=== PATIENT | male | born 2000 | race Two or more races ===

== ENCOUNTER 2024-07-29 04:14 | Emergency (ER) | payer SELFPAY ==
[2024-07-29 04:22] VITALS: BP 142/92; PULSE 91; RESP 19; TEMP 36.5; O2SAT 100; BMI 47.7
--- NOTE | 2024-07-29 04:26 | EDRME_ITS ---
Rapid Medical Screening Exam [facility] Arrival date/time: 07/29/24 04:14 24M with no significant PMH present so to ED with several days of N/V, epigastric pain/cramping, and non-bloody diarrhea. Chief Complaint: Abdominal Pain Vital signs: Vital Signs Temperature 97.7 F 07/29/24 04:22 Pulse Rate 91 07/29/24 04:22 Respiratory Rate 19 07/29/24 04:22 Blood Pressure 142/92 H 07/29/24 04:22 Pulse Oximetry (%) 100 07/29/24 04:22 Oxygen Delivery Method Room Air 07/29/24 04:22
[2024-07-29] MEDS: ONDANSETRON ODT 4 MG TABRAP 8 MG PO (04:31)
[2024-07-29] MEDS: MG HYD/AL HYD/SIME (Maalox Reg) SUSP 30 ML UDC PO (04:49)
[2024-07-29 05:12] LABS: Basophils # (Auto) 0.1 Thou/mm3 (0.0-0.2); Basophils % (Auto) 0 % (0-2.5); Eosinophils # (Auto) 0.1 Thou/mm3 (0.0-0.5); Eosinophils % (Auto) 1 % (0-10); Hematocrit 44.5 % (41.0-53.0); Immature Granulocytes % (Auto) 0 % (0-0); Immature Granulocytes Auto 0.03 Thou/mm3 (0.00-0.00); Lymphocytes # (Auto) 2.2 Thou/mm3 (1.0-4.8); Lymphocytes % (Auto) 18 % (10-50); Mean Corpuscular HGB Conc 33.7 g/dl (31.0-37.0); Mean Corpuscular Hemoglobin 30.6 pg (25.0-35.0); Mean Corpuscular Volume 91 fL (80-100); Monocytes # (Auto) 0.8 Thou/mm3 (0.0-0.8); Monocytes % (Auto) 7 % (0-12); Neutrophils % (Auto) 74 % (37-80); Nucleated Red Blood Cell % 0 /100 WBC (0); Platelet Count 181 Thou/mm3 (140-440); RDW Standard Deviation 39.6 fL (35.1-43.9); White Blood Count 12.2 Thou/mm3 (3.8-10.6)
[2024-07-29 05:42] LABS: Collection Type, Urine Clean Catch
[2024-07-29 06:02] LABS: Bilirubin,Urine Negative (Negative); Blood,Urine Negative (Negative); Clarity,Urine Clear (Clear/Hazy); Color,Urine Yellow (Lt Yel-Yel); Glucose, Urine Negative (Negative); Ketones,Urine Negative (Negative); Leukocyte Esterase,Urine Negative (Negative); Nitrite,Urine Negative (Negative); PH,Urine 7.5 (5.0-7.0); Protein,Urine Trace (Neg - Trace); RBC,Urine 1 /hpf (0-3); Specific Gravity,Urine 1.028 (1.001-1.035); Squamous Epithelial Cell,Urine < 1 /hpf (0-5); Urobilinogen,Urine Negative mg/dL (0.0-1.0); WBC,Urine 1 /hpf (0-5)
[2024-07-29 06:48] LABS: Alanine Aminotransferase 39 U/L (10-49); Albumin, Serum 4.6 gm/dL (3.5-5.0); Albumin/Globulin Ratio 1.6 (1.2-2.2); Alcohol, Blood Medical < 3.0 mg/dL (0-10.0); Alkaline Phosphatase 69 U/L (46-116); Anion Gap 8 (7-16); Aspartate Amino Transferase 26 U/L (0-34); BUN/Creatinine Ratio 14 Ratio (12-20); Bilirubin,Total 0.6 mg/dL (0.3-1.2); Blood Urea Nitrogen 13 mg/dL (9-23); Calcium 10.4 mg/dL (8.3-10.6); Calcium (Corrected) 10.4 mg/dL (8.5-10.1); Carbon Dioxide 24.7 mMol/L (20.0-31.0); Chloride 104 mMol/L (98-107); Creatinine (Component) 0.9 mg/dL (0.6-1.3); Estimated Creatinine Clearance 190.3 mL/min (>60); Globulin 2.9 gm/dL (2.3-3.5); Glucose 107 mg/dL (74-106); Lipase 35 U/L (12-53); Osmolality,Calculated 273 (275-295); Potassium 4.6 mMol/L (3.4-5.1); Sodium 137 mMol/L (136-145); Total Protein 7.5 gm/dL (5.7-8.2); eGFR > 60 See Note
[2024-07-29 07:08] VITALS: BP 143/85; PULSE 73; RESP 18; TEMP 36.9; O2SAT 97
[2024-07-29 07:38] LABS: Amphetamine/Methamp Scrn,U Negative (Negative); Barbiturate Screen,Urine Negative (Negative); Benzodiazepines Screen,Urine Negative (Negative); Benzoylecgonine Screen, Ur Negative (Negative); Opiate Screen,Urine Negative (Negative); THC Screen,Urine Negative (Negative)
--- NOTE | 2024-07-29 07:38 | EDNOTE_ITS ---
ED Abdominal Pain RME/HPI General Chief Complaint: Abdominal Pain Stated complaint: EPIGASTRIC PAIN Time seen by provider: 07/29/24 05:13 Arrival date/time: 07/29/24 04:14 RME / HPI RME / HPI narrative: 07/29/24 04:14 24M with no significant PMH present so to ED with several days of N/V, epigastric pain/cramping, and non-bloody diarrhea. DR. ALAN MAIN ED EVALUATION: 24 year old male with no stated medical history presents to the ED for evaluation of waxing and waning epigastric abdominal pain beginning 2 days ago. Described as cramping aching in sensation. Accompanied by nausea, vomiting x2 and diarrhea x2 since onset. Denies fevers, chills, sore throat, chest pain, cough, shortness of breath, or urinary symptoms. No history of similar pain. Related Data Allergies Allergy/AdvReac Type Severity Reaction Status Date / Time NKA* Allergy Uncoded 03/07/10 23:31 Review of Systems Review of Systems Narrative Review of Systems: Constitutional: DENIES; Fevers Eyes: DENIES; Loss of vision Head/Ear/Nose: DENIES; Loss of hearing Throat: DENIES; Dysphagia Cardiovascular: DENIES; Chest pain, dyspnea or syncope Respiratory: DENIES; Shortness of breath Gastrointestinal: SEE HPI +abd pain, n/v/d. DENIES; Rectal bleeding or melena. Genitourinary: DENIES; Dysuria (painful or difficult urination) Musculoskeletal: DENIES; Arthralgia (pain in a joint),; Skin: DENIES; Rash Neurological: DENIES; Loss of function or movement Psychiatric: DENIES; recent major life stressor, emotional problem, illicit drug use or abuse Endocrinology: DENIES; Weight change Hematologic/Lymphatic: DENIES; Abnormal bruising Allergic/Immunologic: DENIES; Urticaria (hives) Past Medical History Past Medical History CARDIAC: Negative Congestive Heart Failure RESPIRATORY: Negative Chronic Obstructive Pulmonary Disease (COPD) GENITOURINARY: Negative Renal Disease ENDOCRINE: Negative Diabetes Mellitus Type 1 or Diabetes Mellitus Type 2 Social History SMOKING STATUS: Current some day smoker ED Exam Narrative Physical exam: Physical Exam: General: The vital signs were reviewed. The patient is non-toxic, in no apparent distress and appears healthy with a patent airway, no respiratory distress and has no apparent circulatory problems. Head & Scalp: Normocephalic, atraumatic. Face: Appears normal and is without lesions, deformity. Ears: Left external pinna appears normal. Right external pinna appears normal. Eyes: The sclera is anicteric. No obvious photophobia. The Left and Right Orbit/Lid/Conjunctiva appears normal without swelling, discoloration or injection. Nose: The nose is without deformity, discharge or tenderness; Throat: Appears normal. The mucous membranes are pink and moist without exudates, redness or mass seen. The tongue appears normal. Neck: The neck is supple and no apparent mass or adenopathy. Chest: The chest wall is normal in size and symmetry and has no chest wall tenderness or crepitus. The patient displays normal ventilator effort without retractions, accessory muscle use and has adequate air movement bilaterally with no wheezes and no rales. Cardiovascular: Regular rate and rhythm; No murmurs, rubs, or gallops; Gastrointestinal: The abdomen appears normal. No obvious hernias or mass. The abdomen is soft and benign, non-distended, with no pain, no guarding and no rebound tenderness. Bowel sounds are present and normal sounding. No CVA tenderness. Genitourinary: Back/Spine: Extremities/Musculoskeletal/lymphatic: The bilateral upper and lower extremities are warm. There is no evidence of arterial insufficiency. There is no evidence of venous insufficiency/edema. The patient spontaneously moves bilateral upper and lower extremities with no pain and no limitation of movement. There is no apparent, injury or trauma. Skin: The skin is warm, dry and intact. No rashes. No petechia. No purpura. No abnormal bruising. The color is appropriate with no cyanosis. Mental status/Psychiatric: Mental status is appropriate for age. The patient has no apparent delusions, visual hallucinations, no apparent audible hallucinations. The patient has no apparent suicidal thoughts/ideation and no apparent homicidal thoughts/ideation. Neurological: The patient is awake, alert, interactive, cordial, cooperative and is oriented to name and situation. The patient follows commands and answers historical question with no imp airment. There is no visual disturbance apparent. The pupils are equal and reactive bilaterally with normal eye movements and no diplopia The bilateral upper and lower extremities have normal strength, normal range of motion and normal functioning. The gait, station and balance appear to be baseline with no acute change Course Quality Measures none Orders Category Date Time Status Alcohol, Blood Medical Stat Lab 07/29/24 04:34 Completed CBC Stat Lab 07/29/24 04:34 Completed CMP [Comprehensive Metabolic Panel] Stat Lab 07/29/24 04:34 Completed Drug Screen,Urine Stat Lab 07/29/24 05:34 Completed Lipase Stat Lab 07/29/24 04:34 Completed UA [Urinalysis] Stat Lab 07/29/24 05:34 Completed Ondansetron Odt [Zofran Odt] Med 07/29/24 07:48 Discontinued 4 mg PO X1 ONE Ondansetron Odt [Zofran Odt] Med 07/29/24 04:24 Discontinued 8 mg PO X1 ONE mg Hyd/Al Hyd/Kamron Susp [Maalox Susp] Med 07/29/24 04:25 Discontinued 30 ml PO X1 ONE Vital Signs Vital signs: Vital Signs Temperature 97.7 F 07/29/24 04:22 Pulse Rate 91 07/29/24 04:22 Respiratory Rate 19 07/29/24 04:22 Blood Pressure 142/92 H 07/29/24 04:22 Pulse Oximetry (%) 100 07/29/24 04:22 Oxygen Delivery Method Room Air 07/29/24 04:22 Pulse ox is 100% on room air which is adequate. Abdominal Pain MDM MDM Narrative MDM Narrative:: Lakisha Warren am scribing for and in the presence of Dr. Alan. Patient presents with nausea vomiting diarrhea 2 episodes of each does not appear to be clinically dehydrated and some intermittent epigastric symptoms associated with the diarrhea. Patient does not appear to be dehydrated sick in any way and no labs were needed. We gave him oral fluid trial for a good hour and a half he had no vomiting or diarrhea and was comfortable smiling and ready to go home unfortunately had high ER volumes at that time and had a delay in his discharge. Most likely is a viral gastroenteritis since was seen lots of flu and viral symptoms at this time he was advised return if getting worse in any way. Patient data External records reviewed:: None (No other visits for review ) Clinical information provided by:: patient Social determinants that could affect healthcare access:: none Patient has the following chronic illnesses:: None How is presenting disease/condition affected by chronic disease/condition?: no chronic disease Evaluation data The following diagnostics were reviewed and interpreted by me:: lab results Lab and/or radiology exams considered but not ordered:: None Interpretation Summary: As noted above Medications / Prescriptions Medications or Prescriptions considered but not ordered:: None Medication administrations:: Medication Administration History Discontinued Medications Al Hydrox/Mg Hydrox/Simethicone (Mg Hyd/Al Hyd/Kamron (Maalox Reg) Susp 30 Ml Udc) 30 ml PO X1 ONE Stop: 07/29/24 04:26 Last Admin: 07/29/24 04:49 Dose: 30 ml Documented By: CVL Ondansetron HCl (Ondansetron Odt 4 Mg Tabrap) 8 mg PO X1 ONE; Protocol Stop: 07/29/24 04:25 Last Admin: 07/29/24 04:31 Dose: 8 mg Documented By: CVL Ondansetron HCl (Ondansetron Odt 4 Mg Tabrap) 4 mg PO X1 ONE; Protocol Stop: 07/29/24 07:49 Last Admin: 07/29/24 07:56 Dose: 4 mg Documented By: AVM See above Consultations Consultation(s) initiated? (list below): No Diagnosis Differential diagnosis abdominal pain: abdominal pain, gastroenteritis and other (gastritis, viral illness) Most likely diagnosis given after review of the tests above:: Gastroenteritis Admission Indicated Admission indicated?: not indicated Admission Request Was there a request for admission?: No Disposition Plan Disposition Plan: Discharge Discharge Attestation Discharge Attestation: The patient and all family members were given an opportunity to ask questions and understood the discharge instructions. Discharge instructions specifically effects, indications for sooner follow up or return to the emergency department, and the expected course of current diagnosis. Patient condition: Stable Discharge Plan Plan Patient Disposition: HOME (Self Care) Prescriptions/Referrals Referrals: Nato Glaser MD [Primary Care Provider] - In 1 week Problem List Clinical Impression: Gastroenteritis Patient/Caregiver Discharge Instructions Education Materials: ED Gastroenteritis, Noninfectious, ED Vomiting (Adult) Additional Instructions: Follow up with your doctor within 2-3 days if you are not better or return if persistent vomiting dehydration or getting worse in any way. Print Language: Libyan Stand Alone Forms: Patient Portal Info Letter
[2024-07-29] MEDS: ONDANSETRON ODT 4 MG TABRAP PO (07:56)
[2024-07-29 14:31] LABS: Fentanyl Screen,Urine Negative (Negative)
== END 2024-07-29 11:01 | disposition home or self-care (01) ==
PROVIDERS: Physician Assistant; Emergency Provider Emergency Medicine; PCP Family Medicine
DX: K52.9 Noninfective gastroenteritis and colitis, unspecified (principal)
CPT/HCPCS: 36415; 80053; 80307; 80320; 81001; 83690; 85025; 99283; Q0162; A9270; G0480